=== PATIENT | female | born 1995 | race Caucasian/White ===

== ENCOUNTER 2019-03-23 07:58 | Day surgery (SDC) | payer BC ==
[2019-03-23] VITALS (9 sets, daily range): BP systolic 115–133; BP diastolic 66–82; PULSE 74–88; RESP 16–22; Ht 167.6 cm; Wt 97.3 kg
[~2019-03-23] VITALS: Ht 167.6 cm; Wt 97.3 kg
[2019-03-23] MEDS ORDERED: SOD CHLORIDE 0.9% 1,000 ML IV ONE (09:30)
[2019-03-23] MEDS ORDERED: CEFAZOLIN 2 GM/50 ML (PMX) 50 ML IVPB ONE (09:30)
--- NOTE | 2019-03-23 11:12 | PREAC ---
Date/Time of Note Date/Time of Note DATE: 03/23/19 TIME: 11:10 Anesthesia Eval and Record Evaluation Time Pre-Procedure Interview DATE: 03/23/19 TIME: 11:10 Age 23 Sex female NPO: 8 hrs Preoperative diagnosis left arm, Right arm mass left posterior ear mass Planned procedure excision of left arm, Right arm mass left posterior ear mass Past Medical History Past Medical History: Includes GI: Obesity Surgery & Anesthesia Issues No known issue Meds Anticoagulation: No Beta Codie within 24 hr: No Reason Beta Codie not given: Pt. not on B-Codie No Active Prescriptions or Reported Meds Current Medications Sodium Chloride 1,000 ml @ 75 mls/hr [id number] ONCE IV Last administered on 03/23/19at 10:17; Admin Dose 75 MLS/HR; Start 03/23/19 at 09:30; Stop 03/23/19 at 22:49 Meds reviewed: Yes Allergies Coded Allergies: No Known Allergy (Unverified , 03/23/19) Allergies Reviewed: Yes Labs/Studies Labs Reviewed: Reviewed by anesthesiologist test: Negative Studies: ECG (n/a), CXR (n/a) Pre-procedure Exam Last vitals Vital Signs Date Temp Pulse Resp B/P (MAP) Pulse Ox O2 O2 Flow FiO2 Time Delivery Rate 03/23/19 97.9 74 16 133/82 99 10:22 (99) Airway: Adequate mouth opening Mallampati: Mallampati I Teeth: Normal Lung: Normal Heart: Normal ASA Physical Status ASA physical status: 1 Emergency: None Planned Anesthetic General/MAC: LMA Planned Pain Management Parenteral pain med Pre-operative Attestations Prior to commencing anesthesia and surgery, the patient was re-evaluated, there was verification of: *The patient's identity *The results of appropriate recent lab work and preoperative vital signs *The above evaluation not changing prior to induction *Anesthetic plan, risk benefits, alternative and complications discussed with patient/family; questions answered; patient/family understands, accepts and wishes to proceed. RENATA CORREA MD Mar 23, 2019 11:11
[2019-03-23] MEDS ORDERED: BUPIVACAINE 0.25% (MPF) 30 ML INJ ONE (11:17)
[2019-03-23] MEDS ORDERED: PROPOFOL 20 ML ONE ×2 (11:29→12:10)
[2019-03-23] MEDS ORDERED: KETOROLAC 30 MG INJ ONE (11:29)
[2019-03-23] MEDS ORDERED: ONDANSETRON 4 MG INJ ONE (11:29)
[2019-03-23] MEDS ORDERED: CEFAZOLIN 1 GM INJ ONE (11:29)
[2019-03-23] MEDS ORDERED: METOCLOPRAMIDE 10 MG INJ ONE (11:29)
[2019-03-23] MEDS ORDERED: ONDANSETRON 4 MG INJ IV PRN (11:30)
[2019-03-23] MEDS ORDERED: FENTAnyl 50 MCG/ML VIAL IV PRN ×3 (11:30)
[2019-03-23] MEDS ORDERED: MEPERIDINE 25 MG INJ IV PRN (11:30)
[2019-03-23] MEDS ORDERED: HYDROmorphONE 1 MG/5 ML IV SYRINGE IV PRN ×3 (11:30)
[2019-03-23] MEDS ORDERED: KETOROLAC 30 MG INJ IV PRN (11:30)
[2019-03-23] MEDS ORDERED: OXYCODONE/ACETAMINOPHEN (5/325) TAB PO PRN ×2 (11:30)
[2019-03-23] MEDS ORDERED: DIPHENHYDRAMINE 50 MG INJ IV PRN (11:30)
[2019-03-23] MEDS ORDERED: FENTAnyl 50 MCG/ML VIAL ONE (11:32)
--- NOTE | 2019-03-23 12:28 | OPR ---
Date/Time of Note Date/Time of Note DATE: 03/23/19 TIME: 12:24 Operative Report Procedure Date: Mar 23, 2019 Preoperative Diagnosis right arm mass left arm mass left neck mass Postoperative Diagnosis same Operation/Procedure Performed 1. excision of left arm mass 2 cm mass 2 cm incision 2. localized adjacent tissue transfer with the use of skin flaps 4 sq cm defect of right arm 3. excision of right neck mass 2 cm mass 2 cm incision 4. localized adjacent tissue transfer with the use of skin flaps 4 sq cm defect of left neck 5. excision of left arm mass 8 cm mass 8 cm incision 6. localized adjacent tissue transfer with the use of skin flaps 16 sq cm defect left arm 7. therapeutic injection of subcutaneous local anesthesia Surgeon see signature line Senior Behavioral Scientist none Anesthesia Type: general Estimated Blood Loss: 0 - 10 ml's Transfusion none Specimen left arm mass right arm mass left neck mass Grafts/Implants none Complications none Pt Condition Post Procedure: stable Indications This is a 23-year-old female with a right arm mass left arm mass and left neck mass. She required surgical excision of the masses. Risks alternatives benefits and personal were discussed with the patient. Patient expressed understanding and consents to the operation. Procedure Description Patient is taken to the OR and prepped and draped in usual sterile fashion. Surgical time was performed. IV antibiotics given. Elliptical incision made over the right arm mass. Dissection with cautery skin onto the mass. The mass was then circumferentially excised. Good hemostasis status. Due to the tissue defect localization just transfer with these of skin flaps were performed. Multilayer closed with interrupted 3-0 Vicryl and skin anat. Therapeutic subcutaneous local anesthesia is injected at the incision site. Attention was then paid to the left neck mass. Elliptical incision made over the left neck mass. Cautery was used to excise the mass. Good hemostasis status. Due to tissue defect localization just transfer with use of skin flaps was performed. Multilayer closed with interrupted 3-0 Vicryl and running 4-0 Monocryl. Therapeutic contains local anesthesia is injected throughout the incision site. Attention was then paid to the left arm mass. Elliptical incision made with a 15 blade. Dissection with cautery skin onto the mass and the mass in circumference excised. Good hemostasis status. Due to tissue defect localized adjacent to his transfer with these of skin flaps was performed. Multilayer closed with interrupted 3-0 Vicryl and skin anat. Therapeutic subcutaneous local anesthesia is injected at the incision site. The neck incision Steri- Strips were applied and the dressings were applied to all incisions. Celia GOODMAN Mar 23, 2019 12:28
[2019-03-23] MEDS ORDERED: HYDROCODONE/APAP (5/325) TAB PO ONE (12:30)
--- NOTE | 2019-03-23 14:30 | PAC ---
Date/Time of Note Date/Time of Note DATE: 03/23/19 TIME: 14:30 Post-Anesthesia Notes Post-Anesthesia Note Last documented vital signs Vital Signs Date Temp Pulse Resp B/P (MAP) Pulse Ox O2 O2 Flow FiO2 Time Delivery Rate 03/23/19 98 84 18 122/69 97 Room Air 12:58 (86) 03/23/19 97.8 12:31 Activity: WNL Respiratory function: WNL Cardiovascular function: WNL Mental status: Baseline Pain reasonably controlled: Yes Hydration appropriate: Yes Nausea/Vomiting absent: No RENATA CORREA MD Mar 23, 2019 14:30
== END 2019-03-23 14:05 | disposition home or self-care (01) ==
LOC: SDS 07:58
PROVIDERS: ATTEND Surgery
DX: D23.4 Other benign neoplasm of skin of scalp and neck (principal); D23.62 Other benign neoplasm of skin of left upper limb, including shoulder; D23.61 Other benign neoplasm of skin of right upper limb, including shoulder
CPT/HCPCS: 14021; 14040; 84703; 88307; J0690; J1885; J2405; J2765; J3010; Z7512; Z7610